=== PATIENT | female | born 1950 | race African-American/Black ===

== ENCOUNTER 2016-12-04 20:22 | Emergency (ER) | payer OTHER ==
[~2016-12-04] VITALS: Ht 167.6 cm; Wt 81.0 kg
[2016-12-05] MEDS ORDERED: ONDANSETRON 4MG ODT PO ONE (02:30)
[2016-12-05] MEDS ORDERED: ACETAMINOPHEN 325MG TABLET PO ONE (02:30)
[2016-12-05 03:47] VITALS: BP 140/81
== END 2016-12-05 04:47 | disposition home or self-care (01) ==
LOC: ER 20:38
DX: M25.512 Pain in left shoulder (principal); M54.2 Cervicalgia; M25.562 Pain in left knee; I10 Essential (primary) hypertension; K21.9 Gastro-esophageal reflux disease without esophagitis; M54.30 Sciatica, unspecified side; Z88.2 Allergy status to sulfonamides; V89.2XXA Person injured in unspecified motor-vehicle accident, traffic, initial encounter; Y93.89 Activity, other specified; Y92.89 Other specified places as the place of occurrence of the external cause; Y99.8 Other external cause status
CPT/HCPCS: 72125; 72170; 73030; 73552; 73562; 99284; Q0162